=== PATIENT | male | born 1950 | race Caucasian/White ===

== ENCOUNTER 2018-11-28 11:05 | Emergency (ER) | payer MEDICARE, OTHER | END 2018-11-28 14:18 | disposition home or self-care (01) | LOC: E/R 14:18 | DX: J18.9 Pneumonia, unspecified organism (principal) | CPT/HCPCS: 71045; 72040; 99284-25 ==

== ENCOUNTER 2018-12-14 11:50 | Inpatient (IN) | payer MEDICARE, OTHER ==
[2018-12-14] MEDS: CEFEPIME 2GM/50 ML (PMX) 50 ML IVPB (13:04)
[2018-12-14] MEDS: SODIUM CHLORIDE 0.9% 1L BAG IV* (13:04)
[2018-12-14] MEDS: VANCOMYCIN 1 GM (PMX) 250 ML IVPB (13:42)
[2018-12-14] MEDS ORDERED: ONDANSETRON 4 MG INJ IV (15:00)
[2018-12-14] MEDS ORDERED: ACETAMINOPHEN 325 MG TAB PO (15:00)
[2018-12-14] MEDS: LEVOFLOXACIN 750MG/D5W (PMX) 150 ML IVPB (19:11)
[2018-12-14] MEDS: POTASSIUM CHLORIDE 10 MEQ in DEXTROSE 5%-0.9% NACL 1,000 ML IV (21:12)
[2018-12-15] MEDS: PANTOPRAZOLE 40 MG INJ IV (06:00)
[2018-12-15] MEDS: HYDROCODONE/APAP (5/325) TAB PO (08:21)
[2018-12-15] MEDS: POTASSIUM CHLORIDE 10 MEQ in DEXTROSE 5%-0.9% NACL 1,000 ML IV (12:38)
[2018-12-15] MEDS: FLUCONAZOLE 200 MG TAB PO (12:38)
[2018-12-15] MEDS: BARIUM SULF 2% 450 ML BTL (BERRY SMOOTHIE) PO (13:45)
[2018-12-15] MEDS: LEVOFLOXACIN 750MG/D5W (PMX) 150 ML IVPB (18:37)
[2018-12-16] MEDS: POTASSIUM CHLORIDE 10 MEQ in DEXTROSE 5%-0.9% NACL 1,000 ML IV (05:23)
[2018-12-16] MEDS: PANTOPRAZOLE 40 MG INJ IV (05:23)
[2018-12-16] MEDS: FLUCONAZOLE 200 MG TAB PO (08:05)
[2018-12-16] MEDS: LEVOFLOXACIN 750MG/D5W (PMX) 150 ML IVPB (18:06)
[2018-12-16] MEDS: LACTULOSE 30ML CUP PO (21:26)
[2018-12-17] MEDS: LACTULOSE 30ML CUP PO ×7 (00:41→21:34)
[2018-12-17] MEDS: POTASSIUM CHLORIDE 10 MEQ in DEXTROSE 5%-0.9% NACL 1,000 ML IV ×2 (01:28→02:30)
[2018-12-17] MEDS: HYDROCODONE/APAP (5/325) TAB PO (05:34)
[2018-12-17] MEDS: PANTOPRAZOLE 40 MG INJ IV (05:34)
[2018-12-17] MEDS: FLUCONAZOLE 200 MG TAB PO (08:07)
[2018-12-17] MEDS: LEVOFLOXACIN 750MG/D5W (PMX) 150 ML IVPB (19:49)
[2018-12-18] MEDS: PANTOPRAZOLE 40 MG INJ IV (06:04)
[2018-12-18] MEDS: FLUCONAZOLE 200 MG TAB PO (09:00)
[2018-12-18] MEDS: LEVOFLOXACIN 750MG/D5W (PMX) 150 ML IVPB (19:05)
[2018-12-19] MEDS: PANTOPRAZOLE (EC) 40 MG TAB PO (05:25)
[2018-12-19] MEDS: FLUCONAZOLE 200 MG TAB PO ×2 (09:00→14:06)
[2018-12-19] MEDS ORDERED: PROPOFOL 20 ML (09:14)
[2018-12-19] MEDS ORDERED: LIDOCAINE 100 MG SYRINGE (09:14)
[2018-12-19] MEDS ORDERED: FENTAnyl 50 MCG/ML VIAL (09:48)
[2018-12-19] MEDS ORDERED: LIDOCAINE 2% (MDV) 20 ML INJ (09:53)
[2018-12-19] MEDS ORDERED: hydrALAzine 20 MG INJ IV (10:00)
[2018-12-19] MEDS ORDERED: LABETALOL HCL 20MG INJ IV (10:00)
[2018-12-19] MEDS ORDERED: EPHEDrine 25 MG/5 ML SYG IV (10:00)
[2018-12-19] MEDS ORDERED: IPRATROPIUM (NEB) 0.5 MG/2.5 ML AMP HHN (10:00)
[2018-12-19] MEDS ORDERED: ALBUTEROL 0.083% (NEB) 2.5 MG/3 ML AMP HHN (10:00)
[2018-12-19] MEDS ORDERED: FENTAnyl 50 MCG/ML VIAL IV ×3 (10:00)
[2018-12-19] MEDS ORDERED: MEPERIDINE 25 MG INJ IV (10:00)
[2018-12-19] MEDS ORDERED: ONDANSETRON 4 MG INJ IV (10:00)
[2018-12-19] MEDS ORDERED: OXYCODONE/ACETAMINOPHEN (5/325) TAB PO ×2 (10:00)
[2018-12-19] MEDS ORDERED: DIPHENHYDRAMINE 50 MG INJ IV (10:00)
[2018-12-19] MEDS ORDERED: HYDROmorphONE 1 MG/5 ML IV SYRINGE IV ×3 (10:00)
[2018-12-19] MEDS ORDERED: SUCCINYLCHOLINE CHLORIDE 100 MG/5 ML SYG IV (10:15)
[2018-12-19] MEDS ORDERED: ONDANSETRON 4 MG INJ (10:15)
[2018-12-19] MEDS ORDERED: ROCURONIUM 50 MG INJ (10:15)
[2018-12-19] MEDS: LEVOFLOXACIN 750MG/D5W (PMX) 150 ML IVPB (18:32)
[2018-12-19] MEDS: FENTAnyl 50 MCG/ML VIAL (19:48)
[2018-12-19] MEDS: MIDAZOLAM 1 MG/ML 2 ML INJ ×2 (19:48→19:49)
[2018-12-20] MEDS: PANTOPRAZOLE (EC) 40 MG TAB PO (06:24)
[2018-12-20] MEDS: TRIMETHOPRIM/SULFAMETHOX (DS) TAB PO ×3 (09:04→20:38)
[2018-12-20] MEDS: FLUCONAZOLE 200 MG TAB PO (09:04)
[2018-12-20] MEDS: LEVOFLOXACIN 750MG/D5W (PMX) 150 ML IVPB (18:35)
[2018-12-21] MEDS: PANTOPRAZOLE (EC) 40 MG TAB PO (05:52)
[2018-12-21] MEDS: FERROUS SULFATE (EC) 325 MG TAB PO ×2 (08:19→20:57)
[2018-12-21] MEDS: TRIMETHOPRIM/SULFAMETHOX (DS) TAB PO ×3 (08:19→20:57)
[2018-12-21] MEDS: FLUCONAZOLE 200 MG TAB PO (08:19)
[2018-12-22] MEDS: ZOLPIDEM 5 MG TAB PO (02:04)
[2018-12-22] MEDS: PANTOPRAZOLE (EC) 40 MG TAB PO (06:14)
[2018-12-22] MEDS: TRIMETHOPRIM/SULFAMETHOX (DS) TAB PO ×2 (08:29→12:28)
[2018-12-22] MEDS: FERROUS SULFATE (EC) 325 MG TAB PO (08:29)
[2018-12-22] MEDS: BISACODYL (EC) 5 MG TAB PO (10:07)
== END 2018-12-22 18:15 | disposition home or self-care (01) | DRG 975 ==
LOC: E/R 11:50 → TEL 14:40
PROC: 0B9G8ZX Drainage of Left Upper Lung Lobe, Via Natural or Artificial Opening Endoscopic, Diagnostic (ICD-10-PCS; principal; 2018-12-18 17:15)
PROC: 0BB88ZX Excision of Left Upper Lobe Bronchus, Via Natural or Artificial Opening Endoscopic, Diagnostic (ICD-10-PCS; 2018-12-18 17:15)
PROC: 0DJD8ZZ Inspection of Lower Intestinal Tract, Via Natural or Artificial Opening Endoscopic (ICD-10-PCS; 2018-12-18 17:15)
PROC: 0DB78ZX Excision of Stomach, Pylorus, Via Natural or Artificial Opening Endoscopic, Diagnostic (ICD-10-PCS; 2018-12-18 17:15)
PROC: 4A033R1 Measurement of Arterial Saturation, Peripheral, Percutaneous Approach (ICD-10-PCS; 2018-12-18 17:15)
DX: B20 Human immunodeficiency virus [HIV] disease (principal); B59 Pneumocystosis; N39.0 Urinary tract infection, site not specified; J95.830 Postprocedural hemorrhage of a respiratory system organ or structure following a respiratory system procedure; I95.9 Hypotension, unspecified; I10 Essential (primary) hypertension; M19.90 Unspecified osteoarthritis, unspecified site; E78.5 Hyperlipidemia, unspecified; D64.9 Anemia, unspecified; Z68.24 Body mass index [BMI] 24.0-24.9, adult; E86.0 Dehydration; R63.4 Abnormal weight loss; R19.4 Change in bowel habit; R13.10 Dysphagia, unspecified; K29.70 Gastritis, unspecified, without bleeding; R19.5 Other fecal abnormalities; K64.8 Other hemorrhoids; K64.4 Residual hemorrhoidal skin tags; K29.30 Chronic superficial gastritis without bleeding; E11.9 Type 2 diabetes mellitus without complications; B95.2 Enterococcus as the cause of diseases classified elsewhere; Y84.8 Other medical procedures as the cause of abnormal reaction of the patient, or of later complication, without mention of misadventure at the time of the procedure; Y92.234 Operating room of hospital as the place of occurrence of the external cause
CPT/HCPCS: 36415; 36600; 70450; 71045; 71250; 74176; 76700; 80048; 80053; 81003; 82105; 82140; 82164; 82270; 82378; 82607; 82746; 82803; 83540; 83605; 83615; 84134; 84145; 84443; 84484; 85025; 85610; 85651; 85730; 86038; 86301; 86360; 86480; 86592; 86635; 86701; 86703; 86704; 86709; 86803; 87015; 87040-91; 87070; 87081; 87086; 87102; 87116; 87281; 87340; 87385; 87536; 87591; 88305; 88312; 93005; 96361; 96365; 96375; 99285-25